=== PATIENT | male | born 1975 | race Caucasian/White ===

== ENCOUNTER 2024-01-07 10:28 | Outpatient (OUT) | payer OTHER, SELFPAY ==
--- NOTE | 2024-01-07 10:52 | XR_ITS ---
The [address] [address] Patient Name: TEZ OROSCO MRN: [id number] date: 1975 Sex: M Assigned Patient Location: RAD Current Patient Location: RAD Accession/Order Number: [id number] Exam Date: 01/07/2024 10:42 Report Date: 01/07/2024 11:08 At the request of: GREY DOMÍNGUEZ Procedure: XR foot RT min 3V PROCEDURE: XR ankle RT min 3V, XR foot RT min 3V HISTORY: Right Ankle Sprain, Right Foot Sprain COMPARISON: No prior images available. FINDINGS: BONES:Small ossification along lateral margin of talus or calcaneus distal to the lateral malleolus which appears to have an irregular caudal/medial margin and is suspicious for an avulsion fracture. 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 SOFT TISSUES:Soft tissue swelling surrounding the ankle, lateral greater than medial. EFFUSION:None visible. OTHER: Negative. XR/XR foot RT min 3V IMPRESSION: 1. Prominent soft tissue swelling surrounding the ankle. 2. Suspect avulsion fracture from the lateral margin of talus distal to the lateral malleolus. No comparison studies. Electronically authenticated by: WARREN SEGURA Date: 01/07/2024 11:08
--- NOTE | 2024-01-07 10:52 | XR_ITS ---
The [address] [address] Patient Name: TEZ OROSCO MRN: [id number] date: 1975 Sex: M Assigned Patient Location: RAD Current Patient Location: RAD Accession/Order Number: [id number] Exam Date: 01/07/2024 10:42 Report Date: 01/07/2024 11:08 At the request of: GREY DOMÍNGUEZ Procedure: XR ankle RT min 3V PROCEDURE: XR ankle RT min 3V, XR foot RT min 3V HISTORY: Right Ankle Sprain, Right Foot Sprain COMPARISON: No prior images available. FINDINGS: BONES:Small ossification along lateral margin of talus or calcaneus distal to the lateral malleolus which appears to have an irregular caudal/medial margin and is suspicious for an avulsion fracture. 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 SOFT TISSUES:Soft tissue swelling surrounding the ankle, lateral greater than medial. EFFUSION:None visible. OTHER: Negative. XR/XR ankle RT min 3V IMPRESSION: 1. Prominent soft tissue swelling surrounding the ankle. 2. Suspect avulsion fracture from the lateral margin of talus distal to the lateral malleolus. No comparison studies. Electronically authenticated by: WARREN SEGURA Date: 01/07/2024 11:08
== END 2024-01-07 10:29 | disposition home or self-care (01) ==
PROVIDERS: Visit Provider Nurse Practitioner Family
DX: S93.401A Sprain of unspecified ligament of right ankle, initial encounter (principal); S93.691A Other sprain of right foot, initial encounter; M25.471 Effusion, right ankle
CPT/HCPCS: 73610; 73630